=== PATIENT | female | born 1970 | race Caucasian/White ===

== ENCOUNTER 2018-12-29 17:00 | Emergency (ER) | payer OTHER ==
[~2018-12-29] VITALS: Ht 170.2 cm; Wt 68.5 kg
[2018-12-29] MEDS ORDERED: IBUPROFEN 600 MG TABLET PO ONE (18:03)
--- NOTE | 2018-12-29 18:03 | NUR ---
pain pt alert with oreintation x 4 pt walked into emergency room for breast will continue to monitor
[2018-12-29] MEDS: IBUPROFEN 600 MG TABLET PO ONE ×2 (18:04→18:05)
[2018-12-29 18:07] VITALS: BP 146/84
== END 2018-12-29 18:25 | disposition home or self-care (01) ==
LOC: ER 17:06
DX: N64.4 Mastodynia (principal); Z88.1 Allergy status to other antibiotic agents; Z60.2 Problems related to living alone